=== PATIENT | female | born 1965 | race Caucasian/White ===

== ENCOUNTER 2016-09-26 12:00 | Inpatient (IN) | payer OTHER ==
--- NOTE | ~2016-09-26 | PN ---
Unit #: [id number] #: [id number] Patient: YASMINE TAYLOR [id number] [facility] [address] [place] [address] [id number] MR#: [id number] NAME: YASMINE TAYLOR. ROOM: P113 Age: 51 Sex: F Admission Date: 09/26/2016 : 1965 Attending Physician: Madhav Child M.D. Admitting Physician: Madhav Child M.D. Primary Care Physician: Primary Care Physician Candice GRIMES PROGRESS NOTES DATE September 29, [address] Madhav Child DISCUSSION This patient was seen and evaluated on September 29, 2016. She continues to report ongoing anxiety. She is attending groups and unit activities. Her appetite and sleep are fair at this time. She remains pleasant and appropriate during interaction. She is social among peers. She has no other complaints at this time. The patient denies any side effects from her current medications. She reports a long history of depression as well. Dictated by... Stephanie Jenkins/clarissa TD: 10/02/2016 09:29 JOB #: [id number] [facility] PROGRESS NOTES Page 1 of 1 X Simona Andrade PROGRESS NOTE
--- NOTE | ~2016-09-26 | HP ---
Unit #: [id number] #: [id number] Patient: YASMINE TAYLOR [id number] [place] [address] [id number] I MR#: [id number] NAME: YASMINE TAYLRO. ROOM: 13 Age: 51 Sex: F Admission Date: 09/26/2016 : 1965 Attending Physician: Madhav Child M.D. Admitting Physician: Madhav Child M.D. Primary Care Physician: Primary Care Physician No HISTORY AND PHYSICAL HISTORY OF PRESENT ILLNESS Yasmine is a 51 year old, admitted to [address] [place] [address] with depression and increased anxiety. PAST MEDICAL HISTORY 1. Chronic obstructive pulmonary disease. 2. History of alcohol abuse. 3. History of withdrawal seizures. 4. History of a brain aneurysm. PAST SURGICAL HISTORY 1. Cholecystectomy. 2. Hysterectomy. 3. Pelvic lap x1. 4. Abdominal hernia repair x2. 5. Tonsillectomy and adenoidectomy. 6. Lower back. 7. Right ankle. 8. Coiling of the brain aneurysm. ALLERGIES Tramadol. SOCIAL HISTORY She smokes less than one half pack per day, drinks alcohol on occasion although she has a history of alcohol abuse. Denies illicit drug use. FAMILY HISTORY Medically noncontributory. REVIEW OF SYSTEMS CONSTITUTIONAL: No fever or chills. HEENT: Denies any sore throat, ear pain or runny nose. CARDIOVASCULAR: Denies chest pain, irregular heart rhythm or palpitations. CHEST: Denies shortness of breath or cough. No hemoptysis. GASTROINTESTINAL: Denies nausea, vomiting, diarrhea or chronic constipation. ENDOCRINE: Denies history of increased thirst or urination. No recent significant weight loss or gain. GENITOURINARY: Denies dysuria, frequency, or hematuria. SKIN: Denies any rashes. HEMATOLOGIC: Denies history of increased bleeding or bruising. MUSCULOSKELETAL: Denies any hot, swollen joints. No generalized muscle Unit #: [id number] #: [id number] Patient: YASMINE TAYLOR pain. NEUROLOGIC: Denies problems with vision or speech. No frequent, severe headaches. No numbness, tingling or weakness in any extremities. Denies loss of bladder or bowel control. CURRENT MEDICATIONS 1. Detox protocol 2. Zoloft 100 mg daily 3. Trazodone 150 mg q.h.s. 4. Methocarbamol 1500 mg q.i.d. 5. KCL 20 mEq b.i.d. PHYSICAL EXAMINATION GENERAL: Alert, well-nourished, no apparent distress. VITAL SIGNS: Blood pressure 160/110, heart rate 100, respirations 16, and temperature 98.6. WEIGHT: 160 pounds. HEIGHT: 5 feet 5 inches. SKIN: Warm and dry without rash. She does have an abrasion along her left arm. The area is scabbed over and there is no increased redness, swelling, heat, or pus noted. HEENT: Normocephalic. TMs not viewed. Oral and nasal passages clear. Conjunctivae clear. PERRLA. EOMs intact. NECK: Supple without lymphadenopathy or thyromegaly. HEART: Regular rate and rhythm without murmur. LUNGS: Clear. ABDOMEN: Soft, nontender. : Not done. EXTREMITIES: No evidence of cyanosis, clubbing or edema. Moves all without focal deficit. NEUROLOGICAL: Grossly within normal limits. Cranial Nerves: II: Visual jolly are intact. III, IV AND : Extraocular movements are intact. Pupils are equal, round and reactive to light. V: Facial sensation is grossly normal. VII: Facial movements and expression are normal. VIII: Auditory acuity grossly intact. IX, X: Uvula is midline. Phonation is normal. XI: Patient shrugs shoulders and turns head normally. XII: Tongue protrudes in the midline. Sensory and Motor Function: Sensory and motor sensation is grossly normal. Motor: moves all extremities well. Coordination: Gait is normal. Deep Tendon Reflexes: Intact. IMPRESSION Psychiatric admission. RECOMMENDATIONS Psychiatric, per psychiatrist. MEDICAL I see no contraindications to participating in facility's activities. MEDICAL PROGNOSIS Good. MEDICAL CONDITION Stable. Unit #: [id number] #: [id number] Patient: YASMINE TAYLOR Dictated by... Sylwia Garcia P.A.-C. for Una Rajput/clarissa TD: 09/27/2016 11:12 JOB #: [id number] HISTORY AND PHYSICAL Page 1 of 1 X Sylwia Garcia HISTORY AND PHYSICAL
--- NOTE | ~2016-09-26 | DS ---
Unit #: [id number] #: [id number] Patient: YASMINE TAYLOR [id number] [place] [address] [id number] MR#: [id number] NAME: YASMINE TAYLOR. ROOM: 13 Age: 51 Sex: F Admission Date: 09/26/2016 : 1965 Discharge Date: 10/01/2016 Attending Physician: Madhav Child M.D. Primary Care Physician: No Primary Care Physician DISCHARGE SUMMARY REASON FOR ADMISSION Yasmine is a 51-year-old woman with a history of alcohol independence and depression who came in reporting increasing hopelessness, helplessness and suicidal ideation. She had been using some alcohol but minimized her used and has an extensive list of home medication. She was unable to contract for safety and was admitted for stabilization. DIAGNOSTIC STUDIES LABORATORY DATA: Please see hospital chart. HOSPITAL COURSE Yasmine was admitted and placed on suicide precautions. Her home medications reviewed and restarted with the change of her antidepressant to Effexor XR 75 mg daily for depression. Minipress 2 mg at bedtime was added for control of posttraumatic nightmares and trazodone 150 mg provided as needed for insomnia. The patient participated generally well in unit groups and activities, although clonazepam had to be discontinued due to her ongoing alcohol dependence. On the date of discharge she was able to contract for safety without further suicidal ideation intent or plan. DISCHARGE DIAGNOSES [place] I Major depressive disorder. Alcohol dependence. [place] [facility] II No diagnosis. [facility] III Chronic pain. Hypertension. Asthma. [place] IV [facility] V FOLLOWUP CARE Instruction to patient, followup with the transitions program at our facility. DISCHARGE MEDICATIONS 1. Effexor XR 75 mg daily for depression. 2. Minipress 2 mg at bedtime for posttraumatic nightmares. 3. Trazodone 150 mg at bedtime for insomnia. Primary care medicines were: 4. Adderall XR 10 mg daily for ADD. 5. Catapres 0.1 mg plus 0.2 mg twice daily for hypertension. Unit #: [id number] #: [id number] Patient: YASMINE TAYLOR 6. Lyrica 10 mg 3 times a day for neuropathy. 7. Neurontin 600 mg 4 times a day for anxiety. 8. Lortab 10/325 three times a day as needed for pain. 9. Proventil inhaler two puffs every 4 hours needed for shortness of air. 10. Colace 100 mg twice a day for constipation. 11. Klor-Con 20 mEq twice daily for potassium supplement. 12. Magnesium oxide 400 mg daily for magnesium supplementation. CONDITION AT DISCHARGE Improved. PROGNOSIS Fair to good. DIET AND ACTIVITY Per primary care doctor. Dictated by... Madhav Child M.D. APPLE/jannet TD: 10/24/2016 13:12 JOB #: [id number] DISCHARGE SUMMARY Page 1 of 1 X Madhav Child MD X DISCHARGE SUMMARY
--- NOTE | ~2016-09-26 | A ---
[facility] Nutrition Therapy DATE: 09/28/16 Patient: YASMINE Torres BRANDON Physician: MARCELLUS Address: [address] [place] [address] Room/Bed: [facility], Zip: [place] [address] Admit Date: 09/26/16 Date of : [birth year] Height: 5 5 Weight: [phone] NUTRITIONAL ASSESSMENT: REASON: CONSULT "HAS GASTRIC BY-PASS SURGERY" PATIENT ADMITTED FOR DEPRESSION, ANXIETY, ETOH ABUSE PMH: COPD, HX ETOH ABUSE, HX WITHDRAWAL SEIZURES, BRAIN ANEURYSM, GASTRIC BYPASS (08/2000) Anthropometrics: HT: 5'5", WT: 160#, BMI: 26.6 Labs: NO LABS AVAILABLE Meds: EFFEXOR, TRAZODONE, KLOR-CON, NEURONTIN, DETOX PROTOCOL, ADDERALL Assessment: PATIENT IS A 51 Y/O FEMALE ADMITTED FOR DEPRESSION, ANXIETY, AND ETOH ABUSE. PATIENT IS CURRENTLY ON DISABILITY, HOMELESS, SMOKES 1 PPD, AND RECENTLY RELAPSED ON ETOH ~1 WEEK AGO. PATIENT HAS BEEN NON-COMPLIANT WITH HER MEDICATIONS X 1 WEEK, AND SHE HAS A LONG HX OF MULTIPLE INPATIENT PSYCH HOSPITALIZATIONS. PER NEEDS ASSESSMENT PATIENT STATED A 40# WEIGHT LOSS X LAST 6 MONTHS. LAST WEIGHT IN [employer] WSA 195# 7 YEARS AGO. NURSING REPORTS PATIENT HAS GOOD PO INTAKES AND IS OVEREATING. PATIENT HAS BEEN ARGUMENTATIVE, WANTING EXTRA FOOD AND SNACKS. PATIENT HAD STATED TO NURSING THAT SHE NEEDS SMALL MEALS WITH LARGER SNACKS D/T DROPS IN HER GLUCOSE LEVELS CAUSING SEIZURES. PATIENT'S BLOOD GLUCOSE YESTERDAY (09/27) WAS 83, WHICH IS WITHIN NORMAL LIMITS. DURING VISIT FROM THIS RD, PATIENT REPORTED THAT SHE HAS CHRONIC MALNUTRITION D/T HER GASTRIC BYPASS 16 YEARS AGO AND HYPOGLYCEMIA. SHE CANNOT HAVE MILK OR FISH, BUT SHE CAN HAVE CHEESE. SHE ALSO STATED THAT SHE EATS 5 MEALS DAILY AT HOME WITH SNACKS, SHE'S HUNGERY EVERY 2 HOURS, AND SHE WOULD LIKE MORE FOOD. THE PATIENT BELIEVES THAT SHE NEEDS A LOT OF PROTEIN D/T HER BYPASS AND THAT THE MEALS HERE ARE HIGH IN CARBOHYDRATES, WHICH IS WHY SHE IS SO HUNGRY. THIS RD DISCUSSED THAT FACT THAT SHE MAY BE HUNGRY D/T HER MEDICATIONS WELL. PATIENT'S PSYCH MEDS MAY CAUSE AN INCREASE IN WEIGHT AND APPETITE. THERE ARE NO NEW LABS AVAILABLE, HOWEVER PATIENT APPEARED TO BE VERY WELL NOURISHED AND HER BMI IS ABOVE A HEALTHY RANGE. THERE IS NO HX NOTED IN HER CHART OR [facility] THAT SUPPORTS THE PATIENT'S CLAIMS THAT SHE HAS CHRONIC MALNUTRITION AND HYPOGLYCEMIA. PATIENT WAS CONTRADICTING HERSELF WHEN SHE STATED THAT SHE NEEDED SMALL MEALS DAILY WITH SNACKS, BUT REQUIRES EXTRA PORTIONS OF FOOD AT EACH MEAL. PATIENT IS CURRENTLY ON A REGULAR DIET WITH LARGE PORTION ENTREES. THERE ARE NO GI OR SKIN ISSUES NOTED ATT. Dx: NO NUTRITION DX Intervention: REGULAR DIET, MEDS PER MD, PSYCH [facility] Nutrition Therapy DATE: 09/28/16 Patient: YASMINE Torres BRANDON Physician: MARCELLUS Address: [address] [place] [address] Room/Bed: [address], Zip: [place] [address] Admit Date: 09/26/16 Date of : [birth year] Height: 5 5 Weight: [id number] Monitoring, Evaluation and Goals: 1. ADEQUATE PO INTAKES >50% OF MEALS 2. PREVENT, CORRECT MICRO/MACRO NUTRIENT DEFICIENCIES MONITOR: WEIGHTS, LABS, PO/FLUID INTAKES Recommendations: 1. CONTINUE REGULAR DIET TOLERATED. PATIENT ALSO RECEIVES LARGE PORTION ENTREES, HOWEVER IT IS NOT RECOMMENDED BY THIS RD. PATIENT WAS ORDERED ENSURE BID TO PROVIDE PATIENT WITH MORE PROTEIN DAILY. PATIENT IS ALSO PROVIDED WITH 3 SNACKS DAILY, AND CURRENTLY HAS EXCESSIVE CALORIC INTAKE WHICH MAY CAUSE AN INCREASE IN WEIGHT. 2. OBTAIN WEIGHTS ROUTINELY (EVERY 3-4 DAYS) 3. OBTAIN A BMP/CMP TO ASSESS PATIENTS NUTRITION STATUS RD TO F/U PER PROTOCOL AND PRN R/T PATIENT NOT AT NUTRITIONAL RISK ATT Respectfully, ALEXANDER VIDAL, RD, LD [facility] cc: client file
[2016-11-25] MEDS ORDERED: MULTI VITAMIN1 EACH PO (09:03)
[2016-11-25] MEDS ORDERED: ASMANEX220 MC1 INH (09:05)
[2016-11-25] MEDS ORDERED: SOMA PO (09:07)
[2016-11-25] MEDS ORDERED: KLONOPIN1 MG PO (09:08)
[2016-11-25] MEDS ORDERED: CLONIDINE HCL0.3 MG PO (09:09)
[2016-11-25] MEDS ORDERED: CYANOCOBAL1000 MCG/M INJ (09:11)
[2016-11-25] MEDS ORDERED: FLEXERIL10 MG PO (09:13)
[2016-11-25] MEDS ORDERED: DEXTROAMPHETAMI10 M1 PO (09:16)
[2016-11-25] MEDS ORDERED: FOLIC ACID1 MG PO (09:18)
[2016-11-25] MEDS ORDERED: FERRO-TIME325 MG PO (09:18)
[2016-11-25] MEDS ORDERED: NEURONTIN600 MG PO (09:19)
[2016-11-25] MEDS ORDERED: HYDROCHLOROTHIA25 MG PO (09:20)
[2016-11-25] MEDS ORDERED: HYDROCODON-ACE1 EAC5 PO (09:21)
[2016-11-25] MEDS ORDERED: IBUPROFEN800 MG PO (09:22)
[2016-11-25] MEDS ORDERED: IPRATR-ALBUTEROL3 ML INH (09:23)
[2016-11-25] MEDS ORDERED: KETOTIFEN FUMARA5 ML OU (09:25)
[2016-11-25] MEDS ORDERED: CLARITIN10 M3 PO (09:26)
[2016-11-25] MEDS ORDERED: LYRICA100 MG PO (09:26)
[2016-11-25] MEDS ORDERED: MAG-OX 400400 MG PO (09:27)
[2016-11-25] MEDS ORDERED: ROBAXIN 750750 MG PO (09:28)
[2016-11-25] MEDS ORDERED: OXYCODONE HCL5 M1 PO (09:29)
[2016-11-25] MEDS ORDERED: K-DUR20 ME1 PO (09:30)
[2016-12-20] MEDS ORDERED: CARAFATE1 GM PO (07:49)
[2016-12-20] MEDS ORDERED: PROTONIX PO (07:49)
[2016-12-20] MEDS ORDERED: ZYVOX600 MG PO (07:50)
[2016-12-20] MEDS ORDERED: BACTRIM DS TAB1 EACH PO (07:51)
[2016-12-20] MEDS ORDERED: PERCOCET10 PO (07:52)
== END 2016-10-01 12:30 | DRG 880 ==
LOC: P1S 14:17
DX: F41.9 Anxiety disorder, unspecified (principal); J44.9 Chronic obstructive pulmonary disease, unspecified; F19.20 Other psychoactive substance dependence, uncomplicated; F10.10 Alcohol abuse, uncomplicated; Z90.710 Acquired absence of both cervix and uterus; F17.210 Nicotine dependence, cigarettes, uncomplicated; F43.12 Post-traumatic stress disorder, chronic; F60.3 Borderline personality disorder
CPT/HCPCS: 82947

== ENCOUNTER 2016-11-10 14:00 | Inpatient (IN) | payer OTHER ==
[~2016-11-10] VITALS: Ht 167.6 cm; Wt 72.6 kg
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
--- NOTE | ~2016-11-10 | HP ---
Unit #: [id number] #: [id number] Patient: YASMINE TAYLOR [id number] [place] [address] [id number] MR#: [id number] NAME: YASMINE TAYLOR. ROOM: P185 Age: 51 Sex: F Admission Date: 11/10/2016 : 1965 Attending Physician: Madhav Child M.D. Admitting Physician: Madhav Child M.D. Primary Care Physician: Generic Doctor Not In System HISTORY AND PHYSICAL HISTORY OF PRESENT ILLNESS The patient is a 51-year-old female admitted on on 11/10/2016 for suicide attempt. PAST MEDICAL HISTORY 1. COPD. 2. Withdrawal seizures. 3. Brain aneurysm. 4. Hypertension. 5. Fibromyalgia. 6. Osteoporosis. 7. Degenerative disc disease causing chronic pain. PAST SURGICAL HISTORY 1. Gastric bypass. 2. Coiling of a brain aneurysm. 3. Cholecystectomy. 4. Hysterectomy. 5. Hernia x2. 6. Tonsils and adenoids. 7. Lumbar. 8. Right ankle. SOCIAL HISTORY She is unemployed homeless. Smokes one pack of cigarettes daily. Drinks 1/2 gallon of alcohol every three days. FAMILY MEDICAL HISTORY Noncontributory. ALLERGIES Tramadol CURRENT MEDICATIONS 1. Gabapentin 2. Hydrochlorothiazide 3. Vistaril 4. Ketotifen 5. Magnesium 6. Multivitamin 7. Potassium 8. Vitamin D 9. Diclofenac Unit #: [id number] #: [id number] Patient: YASMINE TAYLOR 10. Folic acid 11. Prazosin 12. Lyrica 13. Trazodone 14. Effexor 15. [place] 16. Adderall 17. Aspirin 18. Clonidine 19. Iron REVIEW OF SYSTEMS CONSTITUTIONAL: No fever or chills. HEENT: Denies any sore throat, ear pain or runny nose. CARDIOVASCULAR: Denies chest pain, irregular heart rhythm or palpitations. CHEST: Denies shortness of breath or cough. No hemoptysis. GASTROINTESTINAL: Denies nausea, vomiting, diarrhea or chronic constipation. ENDOCRINE: Denies history of increased thirst or urination. No recent significant weight loss or gain. GENITOURINARY: Denies dysuria, frequency, or hematuria. SKIN: Denies any rashes. HEMATOLOGIC: Denies history of increased bleeding or bruising. MUSCULOSKELETAL: She complains of severe back pain. NEUROLOGIC: Denies problems with vision or speech. No frequent, severe headaches. No numbness, tingling or weakness in any extremities. Denies loss of bladder or bowel control. PHYSICAL EXAM GENERAL: She is awake, alert and oriented in no acute distress. VITAL SIGNS: Temperature 98.7, heart rate 87, respiration 16, blood pressure 138/80. HEIGHT: 5 foot 6. WEIGHT: 160 pounds. SKIN: Warm and dry without rash or lesion. HEENT: Normocephalic. TMs not viewed. Oral and nasal passages clear. Conjunctivae clear. PERRLA. EOMs intact. NECK: Supple without lymphadenopathy or thyromegaly. HEART: Regular rate and rhythm without murmur. LUNGS: Clear. ABDOMEN: Soft, nontender. : Not done. EXTREMITIES: No evidence of cyanosis, clubbing or edema. Moves all without focal deficit. NEUROLOGICAL: Grossly within normal limits. Cranial Nerves: II: Visual jolly are intact. III, IV AND : Extraocular movements are intact. Pupils are equal, round and reactive to light. V: Facial sensation is grossly normal. VII: Facial movements and expression are normal. VIII: Auditory acuity grossly intact. IX, X: Uvula is midline. Phonation is normal. XI: Patient shrugs shoulders and turns head normally. XII: Tongue protrudes in the midline. Sensory and Motor Function: Sensory and motor sensation is grossly normal. Motor: moves all extremities well. IMPRESSION 1. Psychiatric admission. 2. COPD. 3. Withdrawal seizures. Unit #: [id number] #: [id number] Patient: YASMINE TAYLOR 4. Brain aneurysm. 5. Hypertension. 6. Fibromyalgia. 7. Osteoporosis. 8. Degenerative disc disease. 9. Chronic pain. RECOMMENDATIONS Psychiatric per psychiatrist. MEDICAL: 1. No contraindication to participate in facility activities. MEDICAL PROGNOSIS Fair. MEDICAL CONDITION Stable. Dictated by... Stephanie Medrano/master TD: 11/12/2016 00:25 JOB #: [id number] HISTORY AND PHYSICAL Page 1 of 1 X SANDERSON, FATIMAHYANN SPENCEN X HISTORY AND PHYSICAL
--- NOTE | ~2016-11-10 | PN ---
Unit #: [id number] #: [id number] Patient: YASMINE TAYLOR [id number] [facility] [address] [place] [address] [id number] MR#: [id number] NAME: YASMINE TAYLOR. ROOM: P251 Age: 51 Sex: F Admission Date: 11/10/2016 : 1965 Attending Physician: Madhav Child M.D. Admitting Physician: Madhav Child M.D. Primary Care Physician: Generic Doctor Not In System [facility] PROGRESS NOTES DATE 11/12/2016 DISCUSSION Upon today's assessment, Mrs. Taylor was found lying in her bed appearing in minimal discomfort. She reports elevated levels of anxiety at this time as evidenced by stating and rating it a 10 out of 10 with 10 being the most severe. She stated "I feel like a wet cat on a ceiling." The patient continues with med seeking behavior regarding the Klonopin that could not be verified as current or dosage verified upon admission, so therefore was discontinued. She was advised to follow up with her attending Dr. Madhav Child in the morning regarding the Klonopin and dose. The patient also reported that her Neurontin dose that was verified upon admission was incorrect and it was at a higher dose at this time. She gave her current pharmacy name and number and order was written for that pharmacy to be contacted to verify dosage from that facility. At this time, patient reports no suicidal/homicidal ideation and verbalizes no plan or intent. She denies auditory or visual hallucinations and no overt symptoms of psychosis was noted. Her mood still appears to be labile in nature and affect is congruent. PLAN We will continue to monitor patient q. 15 minutes for safety as well as encourage her to attend groups and programming. Will have nursing staff contact the patient's pharmacy and if the dose was found to be at a higher dose and frequency, it will be adjusted at that time. Dictated by... ISIDRO Eller/reese TD: 11/15/2016 22:45 JOB #: [id number] Unit #: [id number] #: [id number] Patient: YASMINE TAYLOR [facility] PROGRESS NOTES Page 1 of 1 X HARPREET STARR
[2016-11-25] MEDS ORDERED: MULTI VITAMIN1 EACH PO (09:03)
[2016-11-25] MEDS ORDERED: ASMANEX220 MC1 INH (09:05)
[2016-11-25] MEDS ORDERED: SOMA PO (09:07)
[2016-11-25] MEDS ORDERED: KLONOPIN1 MG PO (09:08)
[2016-11-25] MEDS ORDERED: CLONIDINE HCL0.3 MG PO (09:09)
[2016-11-25] MEDS ORDERED: CYANOCOBAL1000 MCG/M INJ (09:11)
[2016-11-25] MEDS ORDERED: FLEXERIL10 MG PO (09:13)
[2016-11-25] MEDS ORDERED: DEXTROAMPHETAMI10 M1 PO (09:16)
[2016-11-25] MEDS ORDERED: FOLIC ACID1 MG PO (09:18)
[2016-11-25] MEDS ORDERED: FERRO-TIME325 MG PO (09:18)
[2016-11-25] MEDS ORDERED: NEURONTIN600 MG PO (09:19)
[2016-11-25] MEDS ORDERED: HYDROCHLOROTHIA25 MG PO (09:20)
[2016-11-25] MEDS ORDERED: HYDROCODON-ACE1 EAC5 PO (09:21)
[2016-11-25] MEDS ORDERED: IBUPROFEN800 MG PO (09:22)
[2016-11-25] MEDS ORDERED: IPRATR-ALBUTEROL3 ML INH (09:23)
[2016-11-25] MEDS ORDERED: KETOTIFEN FUMARA5 ML OU (09:25)
[2016-11-25] MEDS ORDERED: CLARITIN10 M3 PO (09:26)
[2016-11-25] MEDS ORDERED: LYRICA100 MG PO (09:26)
[2016-11-25] MEDS ORDERED: MAG-OX 400400 MG PO (09:27)
[2016-11-25] MEDS ORDERED: ROBAXIN 750750 MG PO (09:28)
[2016-11-25] MEDS ORDERED: OXYCODONE HCL5 M1 PO (09:29)
[2016-11-25] MEDS ORDERED: K-DUR20 ME1 PO (09:30)
[2016-12-20] MEDS ORDERED: CARAFATE1 GM PO (07:49)
[2016-12-20] MEDS ORDERED: PROTONIX PO (07:49)
[2016-12-20] MEDS ORDERED: ZYVOX600 MG PO (07:50)
[2016-12-20] MEDS ORDERED: BACTRIM DS TAB1 EACH PO (07:51)
[2016-12-20] MEDS ORDERED: PERCOCET10 PO (07:52)
[2016-12-20] MEDS ORDERED: ZYPREXA10 MG PO (11:12)
[2016-12-20] MEDS ORDERED: DESYREL100 MG PO (11:14)
[2016-12-20] MEDS ORDERED: CITALOPRAM HBR40 MG (11:14)
== END 2016-11-15 12:45 | disposition home or self-care (01) | DRG 885 ==
LOC: P1E 17:13 → P2L 11-13 14:39 → POF 11-13 18:02 → P2L 11-13 18:03
DX: F33.2 Major depressive disorder, recurrent severe without psychotic features (principal); I67.1 Cerebral aneurysm, nonruptured; R45.851 Suicidal ideations; F43.12 Post-traumatic stress disorder, chronic; F60.3 Borderline personality disorder; I10 Essential (primary) hypertension; M79.7 Fibromyalgia; Z98.84 Bariatric surgery status; T50.902D Poisoning by unspecified drugs, medicaments and biological substances, intentional self-harm, subsequent encounter; Z59.0 Homelessness; Z56.0 Unemployment, unspecified; F17.210 Nicotine dependence, cigarettes, uncomplicated; M81.0 Age-related osteoporosis without current pathological fracture; G89.29 Other chronic pain